=== PATIENT | male | born 1950 | race Caucasian/White ===

== ENCOUNTER 2016-11-24 08:22 | Inpatient (IN) | payer OTHER ==
[~2016-11-24] VITALS: Ht 185.4 cm; Wt 86.2 kg
[~2016-11-24 08:22] MED LIST: ADVIL,NUPRIN,M200 MG PO; AMOX TR-K CLV1 EAC4 PO; ASPIR 8181 M1 PO; ASPIRIN81 M1 PO; CONZIP100 MG PD; COUMADIN,JANTO7.5 MG PO; COUMADIN7.5 MG PO; Cipro PO; Combivent IH; DILAUDID2 MG PO; DILAUDID4 MG PO; FLEXERIL10 MG PO; FLOMAX0.4 MG PO; GABAPENTIN300 MG PO; Habitrol,Nicoderm CQ TD; KLONOPIN0.5 M1 PO; METHOCARBAMOL500 MG PO; MULTI-DAY VITA1 EACH PO; MULTIPLE VITAM1 EAC1 PO; Motrin PO; NICOTINE PATCH1 EAC2 TD; NORCO 5/3251 TABLET PO; PHENERGAN-CODE120 ML PO; PROAIR HFA8.5 GM IH; SUMATRIPTAN SU100 MG PO; TRAMADOL HCL50 MG PO; VITAMIN D31000 UNIT PO; VITAMIN D400 UNI1 PO; WARFARIN SODIUM5 MG PO; ZITHROMAX Z-PA250 MG PO; ZOFRAN ODT4 MG PO; ZOFRAN4 MG PO; oxyCODONE PO
[2016-11-24 08:59] LABS: HEMATOCRIT 43.3 % (38.0-50.0); MCH 32.3 PG (29.0-34.0); MCHC 33.9 G/DL (30.0-36.0); MCV 95.2 FL (86-99); MEAN PLAT.VOLUME 8.9 uM^3 (9.0-12.4); PLATELET COUNT 208 K/uL (156-360); RBC DIS.WIDTH-CV 12.4 % (11.8-14.6); RBC DIS.WIDTH-SD 43.5 % (39-53); RED BLOOD COUNT 4.55 M/uL (4.00-5.50); WHITE BLOOD COUNT 6.1 K/uL (4.1-10.2)
[2016-11-24 09:19] LABS: CHLORIDE 109 mEq/L (99-109); POTASSIUM 3.9 mEq/L (3.7-5.4); SODIUM 141 mEq/L (136-147)
[2016-11-24 09:20] LABS: INTER. NORMALIZED RATIO 1.6; PROTHROMBIN TIME 16.6 (9.2-11.2)
[2016-11-24 09:20] LABS: GLUCOSE 104 mg/dL (70-99)
[2016-11-24 09:22] LABS: ANION GAP 9 MEQ/L (2-14)
[2016-11-24 09:24] LABS: GFR ESTIMATE (CALCULATED) 59 mL/min/
[2016-11-24 09:25] LABS: UREA NITROGEN (BUN) 19 mg/dL (9-23)
[2016-11-24 09:28] LABS: TROP-I INTERPRETATION NEGATIVE; TROPONIN-I < 0.01 ng/mL (0.0-0.30)
[2016-11-24] MEDS ORDERED: GABAPENTIN400 MG PO (11:37)
[2016-11-24] MEDS ORDERED: SUMATRIPTAN SU100 MG PO (11:37)
[2016-11-24] MEDS ORDERED: CETIRIZINE HCL10 M2 PO (11:37)
[2016-11-24] MEDS ORDERED: COUMADIN5 MG PO (11:39)
[2016-11-24] MEDS ORDERED: WARFARIN SODIUM5 MG PO (11:40)
[2016-11-24] MEDS ORDERED: TYLENOL EXTRA500 MG PO (11:40)
[2016-11-24 17:30] VITALS: BP 122/76
[2016-11-24 19:12] VITALS: BP 98/58
[2016-11-24 23:20] VITALS: BP 103/59
[2016-11-25 03:54] VITALS: BP 103/61
[2016-11-25 06:59] VITALS: BP 92/51
[2016-11-25 10:08] LABS: INTER. NORMALIZED RATIO 1.9; PROTHROMBIN TIME 19.5 (9.2-11.2)
[2016-11-25 11:00] VITALS: BP 104/59
[2016-11-25 11:04] LABS: HIV INDEX 0.15; HIV-1/2 AB/AG COMBO Nonreactive
[2016-11-25 18:10] VITALS: BP 123/69
[2016-11-25 20:06] VITALS: BP 121/70
[2016-11-26 06:42] LABS: INTER. NORMALIZED RATIO 2.4; PROTHROMBIN TIME 24.8 (9.2-11.2)
[2016-11-26 07:15] VITALS: BP 127/76
[2016-11-26] MEDS ORDERED: NICOTINE PATCH1 EAC2 TD (07:59)
[2016-11-26] MEDS ORDERED: AZITHROMYCIN500 M1 PO (07:59)
[2016-11-26] MEDS ORDERED: BUPROPION HCL150 M2 PO (08:00)
[2016-11-26] MEDS ORDERED: BUSPAR10 MG PO (08:00)
[2016-11-26] MEDS ORDERED: ROPINIROLE HC0.25 MG PO (08:01)
[2016-11-26] MEDS ORDERED: ADVAIR HFA120 INHALA IH (08:01)
[2016-11-26] MEDS ORDERED: MEDROL DOSEPAK4 MG PO (08:01)
[2016-11-26] MEDS ORDERED: SPIRIVA RESPIMAT4 GM IH (08:02)
[2016-11-26 12:29] VITALS: BP 128/69
== END 2016-11-26 13:58 | disposition home health service (06) | DRG 192 ==
LOC: EME 08:22 → EDOF 11:29 → 5EAST 11:29 → EDOF 11:29 → 5EAST 15:53
PROVIDERS: Emergency Medicine; Internal Medicine; Internal Medicine Pulmonary Disease
DX: J44.1 Chronic obstructive pulmonary disease with (acute) exacerbation (principal); J44.0 Chronic obstructive pulmonary disease with (acute) lower respiratory infection; J20.9 Acute bronchitis, unspecified; F41.1 Generalized anxiety disorder; B18.2 Chronic viral hepatitis C; F17.200 Nicotine dependence, unspecified, uncomplicated; F34.1 Dysthymic disorder; F43.10 Post-traumatic stress disorder, unspecified; G25.81 Restless legs syndrome; G89.29 Other chronic pain; F14.10 Cocaine abuse, uncomplicated; M50.90 Cervical disc disorder, unspecified, unspecified cervical region; Z86.711 Personal history of pulmonary embolism; Z79.01 Long term (current) use of anticoagulants; Z86.718 Personal history of other venous thrombosis and embolism
CPT/HCPCS: 71010; 71275; 80048; 83605; 84484; 85027; 85379; 85610; 86703; 87040; 87070; 87205; 93005; 94640; 94640 76; 94760; 94799; 99202; 99281; 99285; G0378; J0696; J1100; J2920; J7050; J7512; J7644

== ENCOUNTER 2017-02-01 07:53 | Emergency (ER) | payer OTHER ==
[~2017-02-01] VITALS: Ht 185.4 cm; Wt 83.6 kg
[~2017-02-01 07:53] MED LIST changes: +ADVAIR HFA120 INHALA IH; +AZITHROMYCIN500 M1 PO; +BUPROPION HCL150 M2 PO; +BUSPAR10 MG PO; +CETIRIZINE HCL10 M2 PO; +COUMADIN5 MG PO; +GABAPENTIN400 MG PO; +MEDROL DOSEPAK4 MG PO; +ROPINIROLE HC0.25 MG PO; +SPIRIVA RESPIMAT4 GM IH; +TYLENOL EXTRA500 MG PO
[2017-02-01 08:51] LABS: INTER. NORMALIZED RATIO 2.2; PROTHROMBIN TIME 24.8 SEC (10.2-12.9)
[2017-02-01 11:08] VITALS: BP 124/91
== END 2017-02-01 11:10 | disposition home or self-care (01) ==
LOC: EME 07:53
PROVIDERS: Emergency Medicine
DX: M79.651 Pain in right thigh (principal); Z86.718 Personal history of other venous thrombosis and embolism; Z79.01 Long term (current) use of anticoagulants; F17.200 Nicotine dependence, unspecified, uncomplicated; Z87.442 Personal history of urinary calculi
CPT/HCPCS: 85610; 93971; 99281; 99284